=== PATIENT | female | born 2000 | race Two or more races ===

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

== ENCOUNTER 2020-03-27 09:29 | Emergency (ER) | payer MEDICAID ==
[~2020-03-27] VITALS: Ht 167.6 cm; Wt 86.2 kg
[~2020-03-27 09:29] MED LIST changes: +ACETAMINOPHEN325 M1 ORAL
--- NOTE | 2020-03-27 09:50 | NUR ---
ED Nurse Note: Pt walked into ED for lower abdominal intermittent pain 10/16. Pt states she had positive test 3 days ago. Denies bleeding or discharge. This is her 2nd . Pt is alert and orientedx4, amb.
[2020-03-27 09:54] VITALS: BP 95/61
[2020-03-27 10:07] LABS: APPEARANCE,URINE SLIGHTLY CLOUDY; BASOPHILS % (AUTO) 1.4 % (0.0-2.0); BILIRUBIN, URINE NEGATIVE (NEGATIVE); EOSINOPHILS % (AUTO) 1.1 % (0.0-3.0); GLUCOSE, URINE (UA) NEGATIVE (NEGATIVE); HEMATOCRIT 41.5 % (37.0-47.0); HEMOGLOBIN 13.5 G/DL (12.0-16.0); KETONES,URINE NEGATIVE (NEGATIVE); LEUKOCYTE ESTERASE ,URINE 1+ (NEGATIVE); LYMPHOCYTES % (AUTO) 24.5 % (20.0-45.0); MEAN CORPUSCULAR VOLUME 89 FL (80-99); NEUTROPHILS % (AUTO) 65.9 % (45.0-75.0); NITRITE,URINE NEGATIVE (NEGATIVE); PH,URINE 6.5 (4.5-8.0); PLATELET COUNT 224 K/UL (150-450); PROTEIN,URINE NEGATIVE (NEGATIVE); RED BLOOD COUNT 4.66 M/UL (4.20-5.40); RED CELL DISTRIBUTION WIDTH 12.4 % (11.6-14.8); UROBILINOGEN,URINE NORMAL MG/DL (0.0-1.0); WHITE BLOOD COUNT 6.7 K/UL (4.8-10.8)
[2020-03-27 10:10] LABS: COLOR,URINE YELLOW
[2020-03-27] MEDS ORDERED: Acetaminophen 500mg (ES) tab ORAL ONE (10:45)
[2020-03-27 10:46] LABS: ALANINE AMINOTRANSFERASE 13 U/L (12-78); ALBUMIN 3.9 G/DL (3.4-5.0); ALKALINE PHOSPHATASE 61 U/L (46-116); ANION GAP 7 mmol/L (5-15); ASPARTATE AMINO TRANSFERASE 15 U/L (15-37); BILIRUBIN,TOTAL 0.4 MG/DL (0.2-1.0); CALCIUM 9.1 MG/DL (8.5-10.1); CARBON DIOXIDE 27 MMOL/L (21-32); CHLORIDE 104 MMOL/L (98-107); CREATININE 0.7 MG/DL (0.55-1.30); POTASSIUM 4.1 MMOL/L (3.5-5.1); SODIUM 138 MMOL/L (136-145)
[2020-03-27 10:51] LABS: BLOOD UREA NITROGEN 12 mg/dL (7-18)
--- NOTE | 2020-03-27 11:14 | Diagnostic Imaging Report ---
. Indication: Lower abdominal pain. Positive home test. Negative urine test in ER. Quantitative beta hCG pending Technique: Transabdominal and transvaginal images of the pelvis. Doppler interrogation of the ovaries Comparison: 10/23/2019 Findings: Uterus measures 6.9 cm length by 3.6 cm AP. The endometrium measures 9 mm thick. No gestational sac demonstrated. No myometrial abnormality. No free cul-de-sac fluid. Ovaries are normal in size and configuration, demonstrate normal Doppler signal. Impression: No intrauterine demonstrated. Findings in addition to negative ER urine test could indicate that there has been interim spontaneous since prior positive home test, or that the home results were artifactual. Recommend correlation with serum beta hCG results; if those are positive then the possibility of ectopic or very early also need to be considered. Normal ovaries
[2020-03-27] MEDS ORDERED: TYLENOL EXTRA500 MG ORAL (11:21)
[2020-03-27 12:00] VITALS: BP 100/64
--- NOTE | 2020-03-27 12:00 | NUR ---
ER DISCHARGE NOTE: Patient is cleared to be discharged per ERMD, pt is aox4, on room air, with stable vital signs. pt was given dc and prescription instructions, pt was able to verbalize understanding, pt id band and iv site removed without complications. pt is able to ambulate with steady gait. pt took all belongings. Pt educated regarding prescription.
--- NOTE | 2020-03-30 06:58 | Emergency Room Report ---
History of Present Illness General Chief Complaint: Abdominal Pain Source: Patient Present Illness HPI 19-year-old female presents for evaluation. Noting lower cramping pain x3 days. Cramping, 6 out of 10, nonradiating. Denies any vaginal bleeding or discharge. Denies nausea or vomiting. Took a test yesterday and states it was positive. States her last menstrual period was about 1 month ago. No other aggravating relieving factors. Denies any other associated symptoms Allergies: Coded Allergies: No Known Allergies (Unverified , 01/14/16) COVID-19 Screening Contact w/high risk pt: No Experienced COVID-19 symptoms?: No COVID-19 Testing performed HAND BOX FOLDER: No Patient History Past Medical History: none Past Surgical History: none Pertinent Family History: none Social History: Denies: smoking, alcohol use, drug use Last Menstrual Period: 02/20 Now: Yes Reviewed Nursing Documentation: PMH: Agreed; PSxH: Agreed Nursing Documentation-PMH Past Medical History: No Stated History Review of Systems All Other Systems: negative except mentioned in HPI Physical Exam Vital Signs Date Time Temp Pulse Resp B/P (MAP) Pulse Ox O2 Delivery O2 Flow Rate FiO2 03/27/20 09:35 98.2 83 19 95/61 (72) 95 Room Air Sp02 EP Interpretation: reviewed, normal General Appearance: no apparent distress, alert, GCS 15, non-toxic Head: normocephalic, atraumatic Eyes: bilateral eye normal inspection, bilateral eye PERRL ENT: hearing grossly normal, normal pharynx, no angioedema, normal voice Neck: full range of motion, supple/symm/no masses Respiratory: chest non-tender, lungs clear, normal breath sounds, speaking full sentences Cardiovascular #1: regular rate, rhythm, no edema Cardiovascular #2: 2+ carotid (R), 2+ carotid (L), 2+ radial (R), 2+ radial (L), 2+ dorsalis pedis (R), 2+ dorsalis pedis (L) Gastrointestinal: normal bowel sounds, non tender, soft, non-distended, no guarding, no rebound Rectal: deferred Genitourinary: normal inspection, no CVA tenderness Musculoskeletal: back normal, normal range of motion, gait/station normal, non- tender Neurologic: alert, motor strength/tone normal, oriented x3, sensory intact, responsive, speech normal Psychiatric: judgement/insight normal, memory normal, mood/affect normal, no suicidal/homicidal ideation Reflexes: 3+ bicep (R), 3+ bicep (L), 3+ tricep (R), 3+ tricep (L), 3+ knee (R), 3+ knee (L) Lymphatic: no adenopathy Medical Decision Making Diagnostic Impression: Primary Impression: Pelvic pain ER Course Hospital Course 19-year-old female presents to ED complaining of lower abdominal pain. possible Differential diagnoses include: gastrits, gastroenterits, ectopic , ovarian torsion/cyst, UTI Clinical course Patient placed on stretcher in ED. After initial history and physical I ordered labs, and pelvic ultrasound. Labs-no leukocytosis, electrolytes okay, beta hCG negative, UA negative. Pelvic ultrasound- no IUP noted, normal ovaries I discussed findings with patient. Safe for discharge with close outpatient follow-up. States she has an [employer] Diagnosis - pelvic pain Stable and discharged to home. Followup with PMD/[employer]. Return to ED if symptoms recur or worsen Labs Test 03/27/20 09:53 White Blood Count 6.7 K/UL (4.8-10.8) Red Blood Count 4.66 M/UL (4.20-5.40) Hemoglobin 13.5 G/DL (12.0-16.0) Hematocrit 41.5 % (37.0-47.0) Mean Corpuscular Volume 89 FL (80-99) Mean Corpuscular Hemoglobin 28.9 PG (27.0-31.0) Mean Corpuscular Hemoglobin Concent 32.5 G/DL (32.0-36.0) Red Cell Distribution Width 12.4 % (11.6-14.8) Platelet Count 224 K/UL (150-450) Mean Platelet Volume 10.0 FL (6.5-10.1) Neutrophils (%) (Auto) 65.9 % (45.0-75.0) Lymphocytes (%) (Auto) 24.5 % (20.0-45.0) Monocytes (%) (Auto) 7.0 % (1.0-10.0) Eosinophils (%) (Auto) 1.1 % (0.0-3.0) Basophils (%) (Auto) 1.4 % (0.0-2.0) Urine Color Yellow Urine Appearance Slightly cloudy Urine pH 6.5 (4.5-8.0) Urine Specific [place] 1.015 (1.005-1.035) Urine Protein Negative (NEGATIVE) Urine Glucose (UA) Negative (NEGATIVE) Urine Ketones Negative (NEGATIVE) Urine Blood Negative (NEGATIVE) Urine Nitrite Negative (NEGATIVE) Urine Bilirubin Negative (NEGATIVE) Urine Urobilinogen Normal MG/DL (0.0-1.0) Urine Leukocyte Esterase 1+ (NEGATIVE) Urine RBC 0-2 /HPF (0 - 2) Urine WBC 0-2 /HPF (0 - 2) Urine Squamous Epithelial Cells Moderate /LPF (NONE/OCC) Urine Bacteria Few /HPF (NONE) Urine HCG, Qualitative Negative (NEGATIVE) Sodium Level 138 MMOL/L (136-145) Potassium Level 4.1 MMOL/L (3.5-5.1) Chloride Level 104 MMOL/L (98-107) Carbon Dioxide Level 27 MMOL/L (21-32) Anion Gap 7 mmol/L (5-15) Blood Urea Nitrogen 12 mg/dL (7-18) Creatinine 0.7 MG/DL (0.55-1.30) Estimat Glomerular Filtration Rate > 60 mL/min (>60) Glucose Level 98 MG/DL (74-106) Calcium Level 9.1 MG/DL (8.5-10.1) Total Bilirubin 0.4 MG/DL (0.2-1.0) Aspartate Amino Transf (AST/SGOT) 15 U/L (15-37) Alanine Aminotransferase (ALT/SGPT) 13 U/L (12-78) Alkaline Phosphatase 61 U/L (46-116) Total Protein 7.7 G/DL (6.4-8.2) Albumin 3.9 G/DL (3.4-5.0) Globulin 3.8 g/dL Albumin/Globulin Ratio 1.0 (1.0-2.7) Lipase 161 U/L (73-393) Human Chorionic Gonadotropin, Qual Negative (NEGATIVE) CT/MRI/US Diagnostic Results CT/MRI/US Diagnostic Results : Imaging Test Ordered: OB US Impression Procedure: US OB 1ST Trimester w/Transvag . Indication: Lower abdominal pain. Positive home test. Negative urine test in ER. Quantitative beta hCG pending Technique: Transabdominal and transvaginal images of the pelvis. Doppler interrogation of the ovaries Comparison: 10/23/2019 Findings: Uterus measures 6.9 cm length by 3.6 cm AP. The endometrium measures 9 mm thick. No gestational sac demonstrated. No myometrial abnormality. No free cul-de-sac fluid. Ovaries are normal in size and configuration, demonstrate normal Doppler signal. Impression: No intrauterine demonstrated. Findings in addition to negative ER urine test could indicate that there has been interim spontaneous since prior positive home test, or that the home results were artifactual. Recommend correlation with serum beta hCG results; if those are positive then the possibility of ectopic or very early also need to be considered. Normal ovaries Last Vital Signs Date Time Temp Pulse Resp B/P (MAP) Pulse Ox O2 Delivery O2 Flow Rate FiO2 03/27/20 12:00 98.2 87 19 100/64 97 Room Air Status: improved Disposition: HOME, SELF-CARE Condition: Stable Scripts Acetaminophen* (TYLENOL EXTRA STRENGTH*) 500 Mg Tablet 500 MG ORAL Q8H PRN for Prn Headache/Temp > 101, #30 TAB 0 Refills Prov: Shane Dotson MD 03/27/20 [facility]: [facility] Patient Instructions: Pelvic Pain, Female, [id number] Shane Dotson MD Mar 30, 2020 06:58
== END 2020-03-27 12:00 | disposition home or self-care (01) ==
LOC: EMR 10:10
DX: R10.2 Pelvic and perineal pain (principal)
CPT/HCPCS: 36415; 76801; 76817; 80053; 81003; 81025; 83690; 84703; 85025; Z7502; 99284